=== PATIENT | female | born 1970 | race Caucasian/White ===

== ENCOUNTER 2024-12-09 08:30 | Emergency (ER) | payer BC, SELFPAY ==
[2024-12-09 08:34] VITALS: BP 142/76
[2024-12-09 09:38] LABS: Urine Albumin Negative (Neg - Trace); Urine Bilirubin Negative (Negative); Urine Character Clear (Clear); Urine Color Yellow; Urine Glucose Negative (Negative); Urine Ketone Negative (Negative); Urine Leukocyte 2+ (Negative); Urine Nitrite Negative (Negative); Urine Occult Blood Trace (Negative); Urine Urobilinogen Negative (Neg - 1+)
--- NOTE | 2024-12-09 09:44 | ED.GENMED ---
History of Present Illness
General
Chief Complaint: Flank Pain
Source: patient
Exam Limitations: none
Time Seen by Provider: 12/09/24 09:33
History of Present Illness
History of Present Illness:
54yoF with a history of seasonal allergies and anxiety presenting for evaluation of flank pain. Symptoms began about 4 days ago with right flank discomfort and some indigestion. Her flank pain was initially mild. She started to have nausea,
vomiting, and diarrhea 2 days ago which seems to have subsided. She woke up today and her right flank pain is worse. She describes a dull, throbbing pain in her right flank that is worse with coughing, sneezing, and deep breathing. Pain
intermittently radiates to the RUQ. She has been taking Tylenol and ibuprofen which takes the edge off of her pain. She is also experiencing a fullness sensation in her upper abdomen as well as queasiness. She denies any chest pain or shortness of
breath. No urinary symptoms.
Past History
Past History
ED Past Medical History: None
ED Past Surgical History: None
Social History
Tobacco: Non-smoker
Alcohol: None
Drug: None
Personal:
Living: with family
Family History
Family History: Negative Early CAD or CAD
Phy Exam
General Physical Exam
General Presentation: well appearing and no apparent distress
General age: appears stated age
General Skin: warm and dry
General Habitus: normal
General Mental: alert
ENT Exam
ENT Exam: normocephalic
Cardiovascular Exam
Cardiovascular Exam: regular rate/rhythm and no murmur
Pulmonary Exam
Pulmonary Exam: lungs clear, no respiratory distress, no rales, no crackles, no rhonchi and no wheezing
Gastrointestinal Exam
Gastrointestinal Exam: soft, non distended, no cva tenderness and other (Mild tenderness in RLQ. Abdomen soft, non-distended. No rebound or guarding. No CVA tenderness. )
Neurological Exam
Neurological Exam: alert
Datil Coma Scale
Eye Opening: Spontaneous
Verbal Response: Oriented
Motor Response: Obeys Commands
GCS Total Score: 15
Musculoskeletal Exam
Musculoskeletal Exam: other (No reproducible tenderness in lumbar region. No skin changes. )
Skin Exam
Skin Exam: normal color and warm/dry
Psychiatric Exam
Psychiatric Exam: normal mood/affect
Course
Orders/Labs/Results
Orders:
Orders
12/09/24 08:38
EKG [Electrocardiogram (*1)] Urgent
Reason for Study: Abdominal Pain
12/09/24 08:39
EKG- Treatment ONCE
12/09/24 09:19
Urinalysis Reflex To Culture Urgent
Date Specimen was Collected: 12/09/24
Time Specimen was Collected: 08:38
Urine Microscopic Reflex Cult Urgent
Urine Culture Urgent
REBEKAH Source: U
Specimen Description:
Date Specimen was Collected: 12/09/24
Time Specimen was Collected: 08:38
12/09/24 10:02
0.9% Sodium Chloride 1000 ml [Nss] 1,000 ml IV BOLUS
Ketorolac [Toradol] 15 mg IV NOW STA
12/09/24 10:53
Complete Blood Count/With Diff Urgent
Comprehensive Metabolic Panel Urgent
D-Dimer Urgent
Lipase Urgent
Troponin I Urgent
12/09/24 11:24
CT Abd/pelvis W Iv Cont Urgent
Comment:
Reason For Exam: R sided abd pain, R flank pain
Abnormal Lab Results
12/09/24 12/09/24
09:19 10:53
Monocytes % 9.7 H %
(1.7-9.3)
Creatinine 0.4 L mg/dL
(0.6-1.0)
Ur Occult Blood Reflex Trace A
(Negative)
Leukocyte Esterase Rfl 2+ A
(Negative)
Urine WBC (Reflex) 11-15 A /HPF
(0-5)
Urine Bacteria (Reflex) Few A
(Negative)
12/09/24 10:53
12/09/24 10:53
Vital Signs
Initial and Last Documented VS:
Initial Vital Signs
Temp Pulse Resp BP Pulse Ox
99.0 F 86 16 142/76 97
12/09/24 08:34 12/09/24 08:34 12/09/24 08:34 12/09/24 08:34 12/09/24 08:34
Last Documented Vital Signs
Temp Pulse Resp BP Pulse Ox
99.0 F 73 22 113/83 98
12/09/24 08:34 12/09/24 11:44 12/09/24 11:44 12/09/24 12:52 12/09/24 12:53
MDM/Problems Addressed
Differential Diagnosis Includes:
54yoF here with R flank pain x 4 days. Worsening today. Had some vomiting and diarrhea 2 days ago which has resolved. Also c/o indigestion. No urinary symptoms. VSS. She is well appearing in no distress. No CVA tenderness. There is mild RLQ
tenderness noted without signs of peritonitis. Differential diagnosis includes but is not limited to: kidney stone, pyelonephritis, musculoskeletal, early shingles, appendicitis
Initial ED plan: Check abdominal labs, D-dimer, troponin/EKG, UA, and CT abdomen. IV Toradol for pain.
*EKG
Interpreted by ED Provider?: Yes
EKG Intrepretation Date: 12/09/24
Heart Rate: 75
Rate: normal
Rhythm: sinus
[place]: normal axis
Interval: normal interval
QRS Pattern: normal QRS
Ischemia: other (Nonspecific T wave changes. No significant change from prior EKG in 2022. )
*Critical Care Note
Total Time (30-74mins, 75-104mins- exclusive of procedures): Not Applicable
Update Note
Update Note:
Labs unremarkable including normal white count and renal function. D-dimer normal making PE very unlikely. No ischemic changes on EKG and troponin within normal limits. UA with 11-15 WBCs and a few bacteria although squamous epithelial cells
noted suggesting contaminated sample. CT is negative for acute findings other than a couple of simple cysts within the pelvis presumably arising from the right ovary. No evidence of hydronephrosis or ureterolithiasis. Unclear etiology of pain.
Possibly musculoskeletal given that pain is worse with coughing and sneezing. She has no urinary symptoms so we will hold on antibiotics pending urine culture results. Supportive care discussed. Advised close PCP follow-up and ED return
precautions discussed. Patient in agreement with plan and was discharged in stable condition.
ED Attending Note
-
Portions of this chart may have been created with voice recognition software.� Occasional wrong word or��sound alike� substitutions may have occurred due to the inherent limitations of voice recognition software.
Discharge Plan
Departure
Patient Disposition: Home (Routine Discharge)
Date of Disposition: 12/09/24
Time of Disposition: 12:57
Patient with high blood pressure during this ER visit?: No
Discharge Problem:
Right flank pain
Instructions: Flank Pain (DC)
Prescriptions:
No Action
prednisone 50 mg tablet
50 mg PO DAILY Qty: 5 0RF
Referrals:
Mary Bradshaw DO [Family Provider] -
Activity Restrictions/Additional Instructions:
Apply heat to affected area. Use lidocaine patches daily (12 hours on, 12 hours off). Take Tylenol and ibuprofen as needed for pain.
Please follow-up with your family doctor on Thursday. Return to the ER with any new or worsening symptoms.
Interventions
Interventions:
*Risk Screen - Suicide Last Done: 12/09/24 08:34
*General Assessment Last Done: 12/09/24 08:34
*Neglect/Abuse Screening Last Done: 12/09/24 08:34
ED- Fall Risk Assessment Last Done: 12/09/24 13:00
*ED COVID-19 Vaccine History Last Done: 12/09/24 08:34
*Nursing Disposition Last Done: 12/09/24 13:00
ZH-Oibfcg-Pnjuyiiqzs Assessment Last Done: 12/09/24 11:00
ED-Female Genitourinary Assessment Last Done: 12/09/24 11:00
Discharge Date and Time
Print Language: LATVIAN
[2024-12-09 10:27] LABS: Urine Squamous Cell >30 /LPF (Few)
[2024-12-09 10:28] LABS: Urine Bacteria Few (Negative); Urine Red Blood Cell 0-2 /HPF (0-2)
[2024-12-09 10:46] VITALS: BMI 32.5
[2024-12-09] MEDS: NSS 1000 IV (10:52)
[2024-12-09] MEDS: TORADOL 15 MG IV (10:52)
[2024-12-09 10:58] VITALS: BP 118/81
[2024-12-09 11:01] VITALS: BP 129/76
[2024-12-09 11:01] LABS: % Basophils 0.3 % (0-2); % Eosinophils 0.9 % (0-6); % Immature Granulocytes 0.2 % (0-0.5); % Lymphocytes 35.4 % (20.5-51.1); % Monocytes 9.7 % (1.7-9.3); % Neutrophils 53.5 % (42.2-75.2); Absolute Eosinophils 0.1 10^3/uL (0-0.7); Absolute Lymphocytes 2.1 10^3/uL (1.2-3.4); Absolute Monocytes 0.6 10^3/uL (0.1-0.6); Absolute Neutrophils 3.1 10^3/uL (1.4-6.5); Hematocrit 42.5 % (37.0-47.0); Hemoglobin 14.2 g/dL (12.0-16.0); Mean Corp Hgb Conc. 33.4 g/dL (33.0-37.0); Mean Corpuscular Hgb 30.2 pg (27.0-31.0); Mean Corpuscular Volume 90.4 fL (81.0-99.0); Mean Platelet Volume 9.3 fL (7.4-10.4); Nucleated Red Blood Cells % 0 %; Platelet Count 335 10^3/uL (130-400); Red Cell Dist. Width 12.2 % (11.5-14.5); White Blood Cell Count 5.9 10^3/uL (4.8-10.8)
[2024-12-09 11:13] LABS: D-Dimer 0.31 ug/mlFEU (0.00-0.50)
[2024-12-09 11:22] LABS: ALT (SGPT) 22 U/L (0-35); AST (SGOT) 28 U/L (14-36); Albumin 4.5 g/dl (3.5-5.0); Alkaline Phosphatase 52 U/L (38-126); Blood Urea Nitrogen 10 mg/dl (7-17); Carbon Dioxide 28 mmol/L (22-30); Chloride 98 mmol/L (98-107); Estimated Creatinine Clearance 104 ml/min; Glucose 85 mg/dl (70-99); Lipase 84 U/L (23-300); Potassium 3.9 mmol/L (3.5-5.1); Sodium 136 mmol/L (135-145); Total Bilirubin 0.5 mg/dl (0.2-1.3); Total Protein 7.4 g/dl (6.3-8.2); eGFR > 60.00
[2024-12-09 11:26] LABS: Troponin I < 0.012 ng/ml
[2024-12-09 12:52] VITALS: BP 113/83
== END 2024-12-09 13:00 | disposition home or self-care (01) ==
LOC: EMR 08:30
PROVIDERS: Physician Assistant; EMERGENCY PHYSICIAN Emergency Medicine; FAMILY PHYSICIAN Internal Medicine
DX: R10.9 Unspecified abdominal pain (principal)
CPT/HCPCS: 99285; 96374; 96361; 74177; 80053; 81003; 81015; 83690; 84484; 85025; 85379; 87077; 87086; 87147; 93005; Q9967